=== PATIENT | female | born 1955 | race Caucasian/White ===

== ENCOUNTER → 2018-03-31 | Outpatient (CLI) | payer OTHER ==
[~2018-03-31] MED LIST: DAPS25TA PO; LEVO88TA4 PO; TYL3 PO
== END | disposition home or self-care (01) ==
LOC: RAH 10:59
PROVIDERS: ATTEND Internal Medicine
DX: C50.411 Malignant neoplasm of upper-outer quadrant of right female breast (principal); Z85.3 Personal history of malignant neoplasm of breast
CPT/HCPCS: 77065

== ENCOUNTER 2019-02-17 07:37 | Day surgery (SDC) | payer MEDICARE, OTHER ==
[~2019-02-17] VITALS: Ht 157.5 cm; Wt 59.1 kg
[2019-02-17 08:30] LABS: INR 0.91 (0.85-1.15); PARTIAL THROMBOPLASTIN TIME 26.5 SEC (26.3-35.5); PROTHROMBIN TIME 9.6 SEC (9.6-11.6)
[2019-02-17] MEDS ORDERED: SODIUM CHLORIDE 0.9% 1000ML 1,000 ML IV ONE (08:33)
[2019-02-17] MEDS ORDERED: LIDOCAINE HCL 1% MDV 50ML VIAL ONE (08:44)
--- NOTE | 2019-02-17 08:45 | NUR ---
TO UTILITIES SERVICE INVESTIGATOR PT TAKEN TO UTILITIES SERVICE INVESTIGATOR VIA STRETCHER BY [place] ADAME. PT STABLE. NO COMPLAINTS MADE. IN LOBBY, INFORMED THAT PT IS BEING TAKEN FOR PROCEDURE, STATED HE WILL STAY IN LOBBY AND INFORM HIM ONCE PT IS BACK.
[2019-02-17 08:48] VITALS: BP 138/69
[2019-02-17] MEDS ORDERED: FENTANYL CITRATE PF 50 MCG/1 ML 2ML VIAL ONE (08:58)
[2019-02-17] MEDS ORDERED: OCTYL 2-CYANOACRYLATE 1 EACH TP ONE (09:26)
--- NOTE | 2019-02-17 09:44 | NUR ---
RECEIVE PT RECEIVED FROM DIET AIDE VIA STRETCHER AWAKE ALERT ORIENTED X3. STABLE. NO COMPLAINTS MADE. GAUZE/OPSITE DRESSING TO LEFT UPPER CHEST DRY AND INTACT, SIFT SOFT, NO SWELLING NO OOZING NO HEMATOMA NOTED. HEAD OF BED KEPT ELEVATED, CALL HARRIS WITHIN REACH, WILL CALL FOR TO COME IN TO ROOM.
[2019-02-17 09:45] VITALS: BP 141/84
[2019-02-17 10:00] VITALS: BP 118/66
[2019-02-17 10:15] VITALS: BP 105/66
[2019-02-17 10:30] VITALS: BP 110/65
[2019-02-17 10:45] VITALS: BP 117/69
--- NOTE | 2019-02-17 10:55 | NUR ---
DISCHARGE PT DISCHARGED VIA WHEELCHAIR WITH . PT STABLE. NO COMPLAINTS MADE. TOLERATED ORAL FLUIDS WELL. DRESSING TO LEFT UPPER CHEST REMAINS DRY AND INTACT, NO OOZING NO HEMATOMA NOTED. DISCHARGE INSTRUCTIONS GIVEN TO AND PT, VERBALIZED UNDERSTANDING.
== END 2019-02-17 10:55 | disposition home or self-care (01) ==
LOC: DAH 07:37
PROVIDERS: ATTEND Internal Medicine
DX: Z45.2 Encounter for adjustment and management of vascular access device (principal); E03.9 Hypothyroidism, unspecified; D64.81 Anemia due to antineoplastic chemotherapy; E05.00 Thyrotoxicosis with diffuse goiter without thyrotoxic crisis or storm; G62.9 Polyneuropathy, unspecified; Z85.3 Personal history of malignant neoplasm of breast; Z98.890 Other specified postprocedural states; Z85.820 Personal history of malignant melanoma of skin; Z87.891 Personal history of nicotine dependence; Z79.899 Other long term (current) drug therapy; Z88.0 Allergy status to penicillin; Z91.018 Allergy to other foods; Z79.01 Long term (current) use of anticoagulants
CPT/HCPCS: 36415; 36590; 77001; 85610; 85730; A4606; J1644; J3010; J3490; J7030; 99156

== ENCOUNTER → 2019-08-31 | Outpatient (CLI) | payer MEDICARE, OTHER | END | disposition home or self-care (01) | LOC: RAH 09:33 | PROVIDERS: ATTEND Internal Medicine | DX: N64.89 Other specified disorders of breast (principal); Z85.3 Personal history of malignant neoplasm of breast | CPT/HCPCS: 77065 ==

== ENCOUNTER → 2020-09-23 | Outpatient (CLI) | payer MEDICARE | END | disposition home or self-care (01) | LOC: RAH 12:48 | PROVIDERS: ATTEND Internal Medicine | DX: C50.411 Malignant neoplasm of upper-outer quadrant of right female breast (principal); R92.8 Other abnormal and inconclusive findings on diagnostic imaging of breast; Z85.3 Personal history of malignant neoplasm of breast | CPT/HCPCS: 76641; 77065 ==

== ENCOUNTER → 2022-09-28 | Outpatient (CLI) | payer OTHER, MEDICARE | END | disposition home or self-care (01) | LOC: RAH 12:40 | PROVIDERS: ATTEND Internal Medicine | DX: C50.411 Malignant neoplasm of upper-outer quadrant of right female breast (principal); Z85.3 Personal history of malignant neoplasm of breast | CPT/HCPCS: 77065 ==

== ENCOUNTER → 2022-10-30 | Outpatient (CLI) | payer OTHER, MEDICARE | END | disposition home or self-care (01) | LOC: RAH 08:45 | PROVIDERS: ATTEND Pediatrics | DX: K21.9 Gastro-esophageal reflux disease without esophagitis (principal); K44.9 Diaphragmatic hernia without obstruction or gangrene | CPT/HCPCS: 74240 ==

== ENCOUNTER → 2022-12-25 | Outpatient (CLI) | payer OTHER, MEDICARE | END | disposition home or self-care (01) | LOC: RAH 13:47 | PROVIDERS: ATTEND Internal Medicine Cardiovascular Disease | DX: I51.7 Cardiomegaly (principal); R94.31 Abnormal electrocardiogram [ECG] [EKG]; I51.89 Other ill-defined heart diseases; Z85.3 Personal history of malignant neoplasm of breast; Z90.11 Acquired absence of right breast and nipple | CPT/HCPCS: 93306 ==

== ENCOUNTER → 2023-09-29 | Outpatient (CLI) | payer OTHER, MEDICARE | END | disposition home or self-care (01) | LOC: RAH 10:58 | PROVIDERS: ATTEND Internal Medicine | DX: C50.412 Malignant neoplasm of upper-outer quadrant of left female breast (principal); C50.411 Malignant neoplasm of upper-outer quadrant of right female breast; Z85.3 Personal history of malignant neoplasm of breast | CPT/HCPCS: 77065 ==

== ENCOUNTER → 2024-09-11 | Outpatient (CLI) | payer OTHER, MEDICARE ==
--- NOTE | 2024-09-12 08:50 | HMCIMG ---
PROCEDURE: MAMMO DX UNILATERAL LEFT HISTORY: Right breast cancer COMPARISON: 09/29/2023 TECHNIQUE: Left breast digital diagnostic mammogram with CAD was performed. No additional views were obtained. FINDINGS: There are scattered areas of fibroglandular density. There is no evidence of a dominant mass, or suspicious microcalcification. There is no evidence of nipple retraction or skin thickening. IMPRESSION: 1. Stable left breast mammogram. BI-RADS: CATEGORY 2: BENIGN FINDINGS Recommend monthly self breast exam as well as annual clinical examination. A negative x-ray should not delay biopsy if a dominant or clinically suspicious mass is present, since 8-10% of cancers are not identified by mammography. Dense breasts particularly, may obscure an underlying neoplasm. Some of these may be detected clinically and therefore, clinical examination is an essential part of breast evaluation.
== END | disposition home or self-care (01) ==
LOC: RAH 14:26
PROVIDERS: ATTEND Internal Medicine
DX: R92.322 Mammographic fibroglandular density, left breast (principal); Z85.3 Personal history of malignant neoplasm of breast
CPT/HCPCS: 77065

== ENCOUNTER → 2025-09-12 | Outpatient (CLI) | payer OTHER, MEDICARE ==
--- NOTE | 2025-09-12 16:02 | HMCIMG ---
DIGITAL left DIAGNOSTIC MAMMOGRAM Technique: The digital mammographic examination of left breast in craniocaudal, mediolateral oblique views along with CAD was obtained. History: This is a 70 years year-old female 8, para2 Ab6 . Patient is status post right breast biopsy with mastectomy on 2017 with radiation and chemotherapy. Patient is on chemotherapy presently. Patient has no family history of breast cancer. Patient has no complaint Reference:Prior mammogram from 09/11/2024, 09/29/2023, 09/28/2022, 09/30/2021 and 09/23/2020 are available for comparison.. Breast composition: Breast composition B: There are scattered areas of fibroglandular density. Finding: The digital mammographic examination of left breast in craniocaudal and mediolateral oblique view along with CAD demonstrates mildly dense with mostly involutional fatty changes.. There is no evidence of any dendritic mass, cluster microcalcification or architectural distortion. The retromammary fat appears to be normal. IMPRESSION: Unchanged from prior mammography. NO RADIOGRAPHIC EVIDENCE OF MALIGNANT CHANGES. WE WOULD RECOMMEND ANNUAL FOLLOW UP WITH TOMOSYNTHESIS UNLESS OTHERWISE CLINICALLY INDICATED. FINAL ASSESSMENT: ACR: BI-RAD - 1. Negative Mammogram. NOTE: IF A WORK-UP OF THIS PATIENT LEADS TO A BIOPSY, PLEASE FORWARD A COPY OF THE PATHOLOGY REPORT TO OUR OFFICE REQUIRED BY SA EFFECTIVE JULY 11, 1994. A NEGATIVE MAMMOGRAM SHOULD NOT PRECLUDE BIOPSY OF A CLINICALLY PALPABLE SUSPICIOUS MASS, 10% OF BREAST CANCERS ARE MAMMOGRAPHICALLY OCCULT. THIS MAMMOGRAPHY FACILITY IS FULLY ACCREDITED BY THE [employer]OD AND [employer]UG [employer] (FDA). THANK YOU FOR THIS REFERRAL.
== END | disposition home or self-care (01) ==
LOC: RAH 10:28
PROVIDERS: ATTEND Internal Medicine
DX: C50.411 Malignant neoplasm of upper-outer quadrant of right female breast (principal); R92.322 Mammographic fibroglandular density, left breast; Z90.11 Acquired absence of right breast and nipple; Z85.3 Personal history of malignant neoplasm of breast
CPT/HCPCS: 77065